=== PATIENT | female | born 1990 | race Caucasian/White ===

== ENCOUNTER 2017-02-03 19:34 | Emergency (ER) | payer OTHER | END 2017-02-03 21:45 | disposition home or self-care (01) | LOC: FER 19:34 | DX: S16.1XXA Strain of muscle, fascia and tendon at neck level, initial encounter (principal); R51 Headache; F17.210 Nicotine dependence, cigarettes, uncomplicated; Z91.040 Latex allergy status; V43.52XA Car driver injured in collision with other type car in traffic accident, initial encounter; Y92.410 Unspecified street and highway as the place of occurrence of the external cause | CPT/HCPCS: J1100 ==

== ENCOUNTER 2022-05-10 07:06 | Emergency (ER) | payer SELFPAY ==
[~2022-05-10 07:06] MED LIST: BENADRYL25 MG PO; DESYREL50 MG PO; HYDROCODONE-APA1 TAB PO; NAPROXEN500 MG PO; NORCO 5-325 TA1 EACH PO; PHENERGAN25 M1 PO; ZANTAC150 MG PO
[2022-05-10 08:07] LABS: BASOPHIL 0.7 % (0-2); EOSINOPHIL 1.5 % (0-5); HGB 14.7 g/dl (12.5-16.0); LYMPHOCYTE 24.8 % (15-48); MCH 30.1 pg (25.0-31.0); MCV 86.1 fL (78.0-100.0); MONOCYTE 7.4 % (0-12); MPV 9.9 fL (6.0-9.5); NEUTROPHIL 65.3 % (41-80); NRBC 0; PLT 264 K/uL (150-400); RBC 4.88 M/uL (4.20-5.40); RDW 11.7 % (11.5-14.0); WBC 9.4 K/uL (4.0-10.5)
[2022-05-10 08:18] LABS: ALBUMIN 3.6 g/dL (3.4-5.0); BILIRUBIN - TOTAL 0.2 mg/dL (0.2-1.0); BUN/CREAT RATIO (CALC) 19.4 RATIO; CREATININE 0.72 mg/dL (0.51-0.95); GLOBULIN (CALCULATION) 3.8 g/dL; POTASSIUM 4.1 mmol/L (3.5-5.1); TOTAL PROTEIN 7.4 g/dL (6.4-8.2)
[2022-05-10 08:28] LABS: BILIRUBIN NEGATIVE (NEGATIVE); BLOOD 1+ Ery/uL (NEGATIVE); CLARITY CLEAR (CLEAR); COLOR YELLOW (YELLOW); GLUCOSE (U) NORMAL (NORMAL); LEUKOCYTES NEGATIVE Leu/uL (NEGATIVE); NITRITE NEGATIVE (NEGATIVE); PROTEIN NEGATIVE (NEGATIVE); SPECIFIC GRAVITY <=1.005 (1.001-1.030); UROBILINOGEN 0.2 mg/dL (0.2-1.0); pH 6.5 (5.0-9.0)
[2022-05-10 08:44] LABS: AMPHETAMINES NEGATIVE (NEGATIVE); BARBITURATES NEGATIVE (NEGATIVE); ECSTASY (MDMA) NEGATIVE (NEGATIVE); MARIJUANA (THC) POSITIVE (NEGATIVE); METHADONE NEGATIVE (NEGATIVE); OPIATES NEGATIVE (NEGATIVE); OXYCODONE NEGATIVE (NEGATIVE)
[2022-05-10 08:47] LABS: BACTERIA 1+; URINARY RBC RARE; URINARY WBC RARE
[2022-05-10] MEDS ORDERED: ROBAXIN500 MG PO (10:55)
[2022-05-10] MEDS ORDERED: NAPROXEN500 MG PO (10:55)
== END 2022-05-10 11:15 | disposition home or self-care (01) ==
LOC: FER 07:06
PROVIDERS: Emergency Medicine
DX: M51.36 Other intervertebral disc degeneration, lumbar region (principal); R55 Syncope and collapse; R31.9 Hematuria, unspecified; Z91.040 Latex allergy status; Z28.310 Unvaccinated for COVID-19
CPT/HCPCS: 36415; 70450; 71045; 80053; 80305; 81001; 84484; 85025; 93005; J7030